=== PATIENT | female | born 1960 | race Caucasian/White ===

== ENCOUNTER 2024-06-17 01:15 | Emergency (ER) | payer SELFPAY ==
[2024-06-17] VITALS (10 sets, daily range): BP systolic 88–172; BP diastolic 60–112; PULSE 70–95; RESP 15–22; TEMP 36.7; O2SAT 95–100; BMI 19.1
--- NOTE | 2024-06-17 01:38 | ECG_ITS ---
[facility] Test Date: 2024-06-17 Pat Name: Fide Gutiérrez Department: Room: Gender: Female Scre[place]: : 1960 Requested By: Karl Covington Order Number: [id number] Reading MD: HARDEEP PRITCHETT Measurements Intervals Bureau Rate: 84 P: 0 NM: 0 QRS: 91 QRSD: 91 T: 37 QT: 369 QTc: 437 Interpretive Statements ATRIAL FIBRILLATION BORDERLINE RIGHT AXIS DEVIATION [QRS AXIS > 90] MODERATE ST DEPRESSION [0.05+ mV ST DEPRESSION] No previous ECG available for comparison Electronically Signed On 06-17-2024 20:58:31 CDT by HARDEEP PRITCHETT [email or web address]
--- NOTE | 2024-06-17 03:18 | CTR_ITS ---
PROCEDURE INFORMATION: Exam: CT Abdomen And Pelvis With Contrast Exam date and time: 06/17/2024 3:44 AM Age: 64 years old Clinical indication: Nausea and vomiting; Abdominal pain; Localized; Right; Prior surgery; Surgery date: 6+ months; Surgery type: Left hip; C/O RT sided abd pain with n/v/d. ; Additional info: Rlq and CVA pain TECHNIQUE: Imaging protocol: Computed tomography of the abdomen and pelvis with contrast. Radiation optimization: All CT scans at this facility use at least one of these dose optimization techniques: automated exposure control; mA and/or kV adjustment per patient size (includes targeted exams where dose is matched to clinical indication); or iterative reconstruction. Contrast material: OMNI 350; Contrast volume: 80 ml; Contrast route: INTRAVENOUS (IV); COMPARISON: No relevant prior studies available. RADIATION DOSE METRICS: Total DLP (mGy-cm): 283.22 FINDINGS: Liver: Normal. No mass. Gallbladder and biliary ducts: Normal. No calcified stones. No ductal dilation. Pancreas: Normal. No ductal dilation. Spleen: Normal. No splenomegaly. Adrenal glands: 2.0 cm left adrenal mass. Kidneys and ureters: Normal. No hydronephrosis. Stomach and bowel: Diverticulosis colon. Appendix: No evidence of appendicitis. Intraperitoneal space: Unremarkable. No free air. No significant fluid collection. Vasculature: Atherosclerosis. Lymph nodes: Unremarkable. No enlarged lymph nodes. Urinary bladder: Unremarkable as visualized. Reproductive: Unremarkable as visualized. Bones/joints: Unremarkable. No acute fracture. Soft tissues: Unremarkable. CT/CT abdomen pelvis w con* [id number] IMPRESSION: Diverticulosis without evidence of diverticulitis. No focal bowel inflammation or obstruction identified. 2 cm left adrenal mass. Recommend elective MRI for further characterization.
[2024-06-17] MEDS: iohexol 350 mg/mL 500 mL Btl (per mL) IV (03:55)
[2024-06-17] MEDS: ondansetron 2 mg/ML SDV 2 mL 4 MG IVP (03:58)
[2024-06-17] MEDS: sodium chloride 0.9% 1,000 ML 999 ML IV ×2 (03:58→08:08)
[2024-06-17] MEDS: morphine 4 mg/mL SDV 1 mL 2 MG IVP (03:59)
[2024-06-17] MEDS: ketorolac 30 mg/mL INJ IVP (03:59)
[2024-06-17 04:32] LABS: Basophils % 0.1 %; Lymphocytes # 0.5 10^3/uL (0.8-4.8); Lymphocytes % 4.9 %; Mean Corpuscular HGB Conc 35.4 g/dL (30-55); Mean Corpuscular Hemoglobin 33.6 pg (27-33); Mean Corpuscular Volume 94.9 fl (85-98); Mean Platelet Volume 10.7 fL (7.4-10.4); Monocytes # 0.5 10^3/uL (0.2-0.9); Monocytes % 5.7 %; Neutrophils # 8.19 10^3/uL (1.8-7.7); Neutrophils % 88.8 %; Nucleated Red Blood Cells % 0 %; Platelet Count 128 10^3/cmm (157-399); Red Cell Distribution Width 13.1 % (12.1-15.1); White Blood Count 9.23 10^3/uL (3.29-11.43)
[2024-06-17 04:52] LABS: Bilirubin Urine Negative (Negative); Blood Urine 1+ (Negative); Glucose Urine UA Negative (Normal); Ketones Urine Trace (Negative); Leukocyte Esterase Urine Negative (Negative); Nitrate Urine Negative (Negative); Protein Urine Negative (Negative); Specific Gravity, Urine 1.018 (1.005-1.030); Urine Appearance Clear (CLEAR); Urine Color Yellow (Yellow); Urobilinogen Urine 0.2 mg/dL (Negative); pH Urine 5.5 (5-7)
[2024-06-17 04:54] LABS: Alanine Aminotransferase 12 U/L (0-33); Albumin Level 4.4 g/dL (3.5-5.2); Alkaline Phosphatase 108 U/L (35-105); Anion Gap 20.6 (5-19); Aspartate Amino Transferase 20 U/L (0-32); Blood Urea Nitrogen 30 mg/dL (8-23); Calcium 8.4 mg/dL (8.5-10.5); Carbon Dioxide 26 mmol/L (22-29); Chloride 83 mmol/L (98-107); Creatinine Clr Calc Pharmacy 35.1451; Globulin 2.8 g/dL (1.3-4.6); Glomerular Filtration Rate 45.2 mL/min (90-130); Glucose 111 mg/dL (65-115); Lipase 47 U/L (13-60); Osmolality Calculated 271 mOsm/kg (285-295); Sodium 127 mmol/L (136-145); Total Bilirubin 1.1 mg/dL (0.15-1.2); Total Protein 7.2 g/dL (6.6-8.7)
[2024-06-17 04:57] LABS: Add Urine Microscopic? YES; Bacteria Urine None Seen /hpf; Hyaline Casts Urine 0-4 /lpf; RBC Urine 0-2 /hpf (0-2); Squamous Epithelial Cell Urine 0-5 /hpf (0-5); WBC Urine 0-5 /hpf (0-5)
[2024-06-17 04:58] LABS: Potassium 2.6 mmol/L (3.5-5.1)
[2024-06-17 05:08] LABS: UA Slide Review UA Slide Review Perf
[2024-06-17 05:09] LABS: Add Urine Culture? No
--- NOTE | 2024-06-17 05:12 | ED_ITS ---
HPI - Abdominal Pain 2 General: Chief Complaint: Abdominal Pain Stated Complaint: HTN Time Seen by Provider: 06/17/24 03:10 History of Present Illness: 64-year-old female patient presenting wi th right lower quadrant and right flank pain. It has been ongoing for the past couple of days on and off. She notes nausea with some vomiting. No fever. No history of abdominal surgery other than hysterectomy. She is experiencing some left-sided flank pain and cramping as well. No dysuria. Related Data Previous Rx's ?Medication ?Instructions ?Recorded ondansetron 4 mg disintegrating 4 mg PO Q6H PRN nausea and 06/17/24 tablet vomiting #14 tabs Allergies Allergy/AdvReac Type Severity Reaction Status Date / Time No Known Allergies Allergy Verified 06/17/24 01:38 Physical Exam 2 Const: GENERAL APPEARANCE: cooperative and ill appearing (Mildly); not frail appearing ORIENTATION/CONSCIOUSNESS: Yes awake, Yes oriented to person, Yes oriented to place and Yes oriented to time HENMT: COMMON NORMALS: normocephalic, atraumatic and Normal external nose present HEAD & SCALP: normocephalic and atraumatic FACE & SINUS: normal facial exam and face symmetric NOSE: Normal external nose present Eye: COMMON NORMALS: Equal, round and reactive pupils present and EOMs intact bilaterally PUPIL: Yes Equal, round and reactive pupils present Neck/C-Spine: GENERAL: Yes trachea midline Chest: CHEST: Yes Symmetrical chest wall rise Resp: COMMON NORMALS: normal respiratory effort, No retractions, No use of accessory muscles and clear to auscultation bilaterally AUSCULTATION: clear to auscultation bilaterally Cardio: COMMON NORMALS: regular rate and regular rhythm RATE: regular rate RHYTHM: regular rhythm GI: COMMON NORMALS: Normal to inspection, nondistended, normoactive bowel sounds present PALPATION: Yes Tenderness to palpation present (GI) Details: RLQ : BLADDER/KIDNEY EXAM: Yes CVA tenderness on the right and on the left Back/Pelvis: GENERAL BACK: Yes CVA tenderness Extremity: COMMON NORMALS: no pedal edema Neuro: KAYLEY COMA SCALE: document GCS findings Kayley coma scale eye opening: Spontaneous [place] coma scale verbal response: Orientated Kayley coma scale motor response: Obey commands Kayley coma scale total score: 15 S ENSORIUM/ORIENTATION: Yes oriented to person, Yes oriented to place and Yes oriented to time SENSORY EXAM: Yes extremities (intact) Psych: COMMON NORMALS: speech normal SPEECH: Yes normal speech Skin: COMMON NORMALS: no rashes or lesions noted GENERAL SKIN EXAM: no rashes or lesions noted Course 2 Vital Signs: Vital signs: Vital Signs Temperature 98.0 F 06/17/24 01:23 Pulse Rate 89 06/17/24 05:36 Respiratory Rate 18 06/17/24 05:36 Blood Pressure 165/112 06/17/24 05:36 Pulse Oximetry 96 06/17/24 05:36 Oxygen Delivery Me thod Room Air 06/17/24 04:03 MDM - Abdominal Pain Medical Decision Making Patient is afebrile. White blood cell count is normal at 9.2. CRP is not remarkable. Creatinine is 1.2. Potassium is 2.6 with a sodium of 127. She has received a liter of fluid. She is receiving IV and oral potassium. Urinalysis is negative. CT shows diverticulosis without diverticulitis. No obstructive uropathy. Will allow discharge following an potassium infusion. Recheck potassium in 2 to 3 days. Case management has been asked to make follow-up appointment for this. Return for any worsening symptoms despite treatment. Schedule Zofran for the next 48 hours. Lab Data 06/17/24 04:21 06/17/24 04:21 Labs/Radiology: Radiology Impressions Abdomen/Pelvis CT 06/17/24 03:18 IMPRESSION: Diverticulosis without evidence of diverticulitis. No focal bowel inflammation or obstruction identified. 2 cm left adrenal mass. Recommend elective MRI for further characterization. Laboratory Results WBC 9.23 10^3/uL (3.29-11.43) 06/17/24 04:21 RBC 3.90 10^6/uL (3.85-5.65) 06/17/24 04:21 Hgb 13.10 g/dL (11.27-16.99) 06/17/24 04:21 Hct 37.0 % (36-47) 06/17/24 04:21 MCV 94.9 fl (85-98) 06/17/24 04:21 MCH 33.6 pg (27-33) H 06/17/24 04:21 MCHC 35.4 g/dL (30-55) 06/17/24 04:21 RDW 13.1 % (12.1-15.1) 06/17/24 04:21 Plt Count 128 10^3/cmm (157-399) L 06/17/24 04:21 MPV 10.7 fL (7.4-10.4) H 06/17/24 04:21 Neut % (Auto) 88.8 % 06/17/24 04:21 Lymph % (Auto) 4.9 % 06/17/24 04:21 [place] % (Auto) 5.7 % 06/17/24 04:21 Eos % (Auto) 0.0 % 06/17/24 04:21 Baso % (Auto) 0.1 % 06/17/24 04:21 Neut # (Auto) 8.19 10^3/uL (1.8-7.7) H 06/17/24 04:21 Lymph # (Auto) 0.5 10^3/uL (0.8-4.8) L 06/17/24 04:21 [place] # (Auto) 0.5 10^3/uL (0.2-0.9) 06/17/24 04:21 Eos # (Auto) 0.0 10^3/uL (0.0-0.8) 06/17/24 04:21 Baso # (Auto) 0.0 10^3/uL (0.0-0.1) 06/17/24 04:21 Nucleated RBC % (auto) 0 % 06/17/24 04:21 Nucleated RBCs # 0.0 /100WBC 06/17/24 04:21 Sodium 127 mmol/L (136-145) L 06/17/24 04:21 Potassium 2.6 mmol/L (3.5-5.1) L* 06/17/24 04:21 Chloride 83 mmol/L (98-107) L 06/17/24 04:21 Carbon Dioxide 26 mmol/L (22-29) 06/17/24 04:21 Anion Gap 20.6 (5-19) H 06/17/24 04:21 BUN 30 mg/dL (8-23) H 06/17/24 04:21 Creatinine 1.2 mg/dL (0.5-0.9) H 06/17/24 04:21 GFR Calculation 45.2 mL/min (90-130) L 06/17/24 04:21 Glucose 111 mg/dL (65-115) 06/17/24 04:21 Calculated Osmolality 271 mOsm/kg (285-295) L 06/17/24 04:21 Calcium 8.4 mg/dL (8.5-10.5) L 06/17/24 04:21 Total Bilirubin 1.1 mg/dL (0.15-1.2) 06/17/24 04:21 AST 20 U/L (0-32) 06/17/24 04:21 ALT 12 U/L (0-33) 06/17/24 04:21 Alkaline Phosphatase 108 U/L (35-105) H 06/17/24 04:21 C-Reactive Protein 3.0 mg/L (0.0-4.9) 06/17/24 04:21 Total Protein 7.2 g/dL (6.6-8.7) 06/17/24 04:21 Albumin 4.4 g/dL (3.5-5.2) 06/17/24 04:21 Globulin 2.8 g/dL (1.3-4.6) 06/17/24 04:21 Lipase 47 U/L (13-60) 06/17/24 04:21 Urine Color Yellow (Yellow) 06/17/24 04:14 Urine Appearance Clear (CLEAR) 06/17/24 04:14 Urine pH 5.5 (5-7) 06/17/24 04:14 Ur Specific [place] 1.018 (1.005-1.030) 06/17/24 04:14 Urine Protein Negative (Negative) 06/17/24 04:14 Urine Glucose (UA) Negative (Normal) 06/17/24 04:14 Urine Ketones Trace (Negative) 06/17/24 04:14 Urine Blood 1+ (Negative) A 06/17/24 04:14 Urine Nitrate Negative (Negative) 06/17/24 04:14 Urine Bilirubin Negative (Negative) 06/17/24 04:14 Urine Urobilinogen 0.2 mg/dL (Negative) 06/17/24 04:14 Ur Leukocyte Esterase Negative (Negative) 06/17/24 04:14 Urine RBC 0-2 /hpf (0-2) 06/17/24 04:14 Urine WBC 0-5 /hpf (0-5) 06/17/24 04:14 Ur Squamous Epith Cells 0-5 /hpf (0-5) 06/17/24 04:14 Amorphous Sediment Not Reportable 06/17/24 04:14 Urine Bacteria None seen /hpf (NONE) 06/17/24 04:14 Hyaline Casts 0-4 /lpf H 06/17/24 04:14 Urine Opiates Screen Positive ng/mL (Negative) H 06/17/24 04:41 Ur Barbiturates Screen Negative ng/mL (Negative) 06/17/24 04:41 Ur Phencyclidine Scrn Negative ng/mL (Negative) 06/17/24 04:41 Ur Amphetamines Screen Negative ng/mL (Negative) 06/17/24 04:41 U Benzodiazepines Scrn Negative ng/mL (Negative) 06/17/24 04:41 Urine Cocaine Screen Negative ng/mL (Negative) 06/17/24 04:41 U Marijuana (THC) Screen Positive ng/mL (Negative) H 06/17/24 04:41 All radiology interpretation(s) finalized by discharge Discharge Plan Discharge Patient Disposition: Home Clinical Impression: Acute hypokalemia, Abdominal pain Condition: Stable Prescriptions: New ondansetron 4 mg tablet,disintegrating 4 mg PO Q6H PRN (Reason: nausea and vomiting) Qty: 14 0RF Discharge Orders: Discharge ED (Routine); Ordered 06/17/24 Ordered By: Karl Newby Patient Instructions: Hypokalemia (ED), Abdominal Pain (ED), Opioid Safety, Pain Management Activity Restrictions/Additional Instructions: Stay hydrated. You should have your potassium checked in 2 to 3 days. Case management can contact you regarding following up at urgent care or primary care physician clinic to do this. In the meantime take nausea medication scheduled every 4 hours while awake for the first 48 hours, then as needed. Return for fever greater than 100, vomiting liquids or medications despite the above, other concerning symptoms. Print Language: Lithuanian Coding Level of Care Code ED Film Recordist for R[address]anna [address]
[2024-06-17] MEDS: potassium chloride oral liq 20 mEq/15 mL UDC 40 MEQ PO (05:27)
[2024-06-17] MEDS: lidocaine 1% 5 ML in potassium chloride premix 100 ML 52.5 ML IV (05:29)
[2024-06-17 05:44] LABS: Amphetamines Screen Urine Negative (Negative); Barbiturates Screen Urine Negative (Negative); Benzodiazepines Screen Urine Negative (Negative); Cocaine Screen Urine Negative (Negative); Opiate Screen Urine Positive (Negative); PCP Screen Urine Negative (Negative); THC Screen Urine Positive (Negative)
--- NOTE | 2024-06-17 10:09 | DCPLANNER ---
messaged [facility] for er f/u - to establish care
== END 2024-06-17 09:55 | disposition home or self-care (01) ==
PROVIDERS: Emergency Provider Emergency Medicine
DX: E87.6 Hypokalemia (principal); R10.9 Unspecified abdominal pain
CPT/HCPCS: 74177; 80053; 80306; 81001; 83690; 85025; 86140; 93005; 96374; 96375; 99285; J1885; J2270; J2405; J3480; J7030; J9999